=== PATIENT | male | born 1990 | race Caucasian/White ===

== ENCOUNTER 2017-09-07 08:12 | Emergency (ER) | payer OTHER ==
[2017-09-07] MEDS: MORPHINE 4 MG/ML 1ML VIAL (J2270) IV (09:07)
[2017-09-07] MEDS: ONDANSETRON 4MG/2ML VIAL (J2405) IV (09:07)
[2017-09-07] MEDS: KETOROLAC 30 MG/ML VIAL (J1885) IV (09:07)
[2017-09-07] MEDS: KETAMINE HCL 200 MG/20 ML VIAL IV (10:16)
[2017-09-07] MEDS: PROPOFOL 200 MG/20 ML VIAL IV (10:18)
== END 2017-09-07 12:20 | disposition home or self-care (01) ==
LOC: M ED 08:12
DX: S63.054A Dislocation of other carpometacarpal joint of right hand, initial encounter (principal); W22.09XA Striking against other stationary object, initial encounter; Y92.098 Other place in other non-institutional residence as the place of occurrence of the external cause; Z88.2 Allergy status to sulfonamides; F17.200 Nicotine dependence, unspecified, uncomplicated
CPT/HCPCS: J2270

== ENCOUNTER → 2018-04-12 | Outpatient (CLI) | payer OTHER | LOC: M OUTALCOH 09:09 | DX: Z13.9 Encounter for screening, unspecified (principal); F10.10 Alcohol abuse, uncomplicated ==

== ENCOUNTER 2018-04-19 15:00 | Outpatient (RCR) | payer OTHER | END 2018-04-26 | LOC: M OUTALCOH 15:00 | DX: F10.10 Alcohol abuse, uncomplicated (principal); Z72.0 Tobacco use ==

== ENCOUNTER 2018-05-02 11:38 | Outpatient (RCR) | payer OTHER | END 2018-05-26 | LOC: M OUTALCOH 05-09 16:00 | DX: F10.10 Alcohol abuse, uncomplicated (principal); Z72.0 Tobacco use ==

== ENCOUNTER 2018-06-13 16:00 | Outpatient (RCR) | payer OTHER ==
[~2018-06-13 16:00] MED LIST: NORCOTAB PO
== END 2018-06-26 ==
LOC: M OUTALCOH 16:00
PROVIDERS: ATTEND Psychiatry & Neurology Psychiatry
DX: F10.10 Alcohol abuse, uncomplicated (principal); Z72.0 Tobacco use

== ENCOUNTER 2018-07-18 16:00 | Outpatient (RCR) | payer OTHER, SELFPAY | END 2018-07-27 | LOC: M OUTALCOH 16:00 | PROVIDERS: ATTEND Psychiatry & Neurology Psychiatry | DX: F10.10 Alcohol abuse, uncomplicated (principal); Z72.0 Tobacco use ==

== ENCOUNTER → 2020-08-20 | Outpatient (CLI) | payer SELFPAY ==
[~2020-08-20] MED LIST changes: +HYDR-3715 PO; -NORCOTAB PO
== END ==
LOC: M LABSMTC 12:51
PROVIDERS: ATTEND Pediatrics
DX: Z20.822 Contact with and (suspected) exposure to COVID-19 (principal)

== ENCOUNTER → 2021-08-11 | Outpatient (CLI) | payer BC | LOC: M OUTALCOH 07:49 | PROVIDERS: ATTEND Psychiatry & Neurology Psychiatry | DX: Z13.89 Encounter for screening for other disorder (principal) ==

== ENCOUNTER 2021-08-18 13:49 | Outpatient (RCR) | payer BC | END 2021-08-24 | LOC: M OUTALCOH 13:49 | PROVIDERS: ATTEND Psychiatry & Neurology Psychiatry | DX: F10.10 Alcohol abuse, uncomplicated (principal); Z72.0 Tobacco use ==

== ENCOUNTER 2022-09-15 07:34 | Outpatient (RCR) | payer BC | END 2022-09-24 | LOC: M OUTALCOH 07:34 | PROVIDERS: ATTEND Psychiatry & Neurology Psychiatry | DX: F17.200 Nicotine dependence, unspecified, uncomplicated (principal); Z03.89 Encounter for observation for other suspected diseases and conditions ruled out ==